=== PATIENT | male | born 1945 | race Caucasian/White ===

== ENCOUNTER → 2019-08-30 | Outpatient (CLI) | payer MEDICARE, BC ==
[~2019-08-30] MED LIST: ALLOPURINOL300 MG PO; ANTIVERT 25MG25 MG PO; ASPIR-LOW81 MG PO; ASPIRIN 81M81 MG/TA2 PO; ATORVASTATIN; CALCIUM 500 SU500 MG PO; CALCIUM600 M1 PO; COZAAR100 MG PO; FISH OIL1 IU PO; FLEXERIL 1010 MG/TAB PO; HCTZ12.5TAB PO; INDOMETHACIN25 MG PO; LAMISIL250 MG PO; LIPITOR 10MG10 MG PO; LOFIBRA134 MG PO; MICARDIS80 MG PO; MVI; NORCO 325 MG-51 TAB PO; OMEGA-31 SGL PO; PREDNISONE20 MG PO; PRILOSEC 20MG20 MG PO; PRILOSEC10 MG PO; TAZTIA180 PO; TRICOR145 MG PO; TRILIPIX 135MG PO; VALIUM 5MG T5 MG/TAB PO; VITAMIN D 1001000 IU PO; VITAMIN D31000 IU PO; ZYLOPRIM 100MG100 MG PO
== END ==
LOC: COL.RAD 09:18
DX: N28.1 Cyst of kidney, acquired (principal); Z90.49 Acquired absence of other specified parts of digestive tract

== ENCOUNTER → 2021-02-18 | Outpatient (CLI) | payer MEDICARE, BC | LOC: MHCPAIN 12:21 | DX: M47.812 Spondylosis without myelopathy or radiculopathy, cervical region (principal); M54.12 Radiculopathy, cervical region; M54.2 Cervicalgia; G89.29 Other chronic pain | CPT/HCPCS: G0463 ==

== ENCOUNTER → 2021-03-19 | Outpatient (CLI) | payer MEDICARE, BC | LOC: MHCPAIN 07:45 | DX: M47.812 Spondylosis without myelopathy or radiculopathy, cervical region (principal); M54.12 Radiculopathy, cervical region; G89.29 Other chronic pain | CPT/HCPCS: G0463; J0461; J1100; Q9967 ==

== ENCOUNTER → 2021-12-25 | Outpatient (CLI) | payer MEDICARE, BC | LOC: COL.RAD 13:48 | DX: M48.02 Spinal stenosis, cervical region (principal); M47.812 Spondylosis without myelopathy or radiculopathy, cervical region; M50.321 Other cervical disc degeneration at C4-C5 level ==